=== PATIENT | female | born 1995 | race Two or more races ===

== ENCOUNTER 2024-01-19 10:18 | Outpatient (CLI) | payer OTHER | END 2024-01-19 10:20 | disposition home or self-care (01) | LOC: PRENATAL 10:18 | PROVIDERS: ATTEND Obstetrics & Gynecology Maternal & Fetal Medicine | DX: O36.80X0 Pregnancy with inconclusive fetal viability, not applicable or unspecified (principal); Z36.82 Encounter for antenatal screening for nuchal translucency; Z14.8 Genetic carrier of other disease; Z3A.12 12 weeks gestation of pregnancy ==

== ENCOUNTER 2024-03-08 08:09 | Outpatient (CLI) | payer OTHER | END 2024-03-08 08:12 | disposition home or self-care (01) | LOC: PRENATAL 08:09 | PROVIDERS: ATTEND Obstetrics & Gynecology Maternal & Fetal Medicine | DX: O44.00 Complete placenta previa NOS or without hemorrhage, unspecified trimester (principal); O34.10 Maternal care for benign tumor of corpus uteri, unspecified trimester; Z3A.20 20 weeks gestation of pregnancy ==

== ENCOUNTER → 2024-04-16 08:36 | Outpatient (CLI) | payer OTHER | END | disposition home or self-care (01) | LOC: PRENATAL 08:36 | PROVIDERS: ATTEND Obstetrics & Gynecology Maternal & Fetal Medicine | DX: O26.849 Uterine size-date discrepancy, unspecified trimester (principal); O34.10 Maternal care for benign tumor of corpus uteri, unspecified trimester; Z3A.25 25 weeks gestation of pregnancy ==

== ENCOUNTER 2024-06-11 09:20 | Outpatient (CLI) | payer OTHER | END 2024-06-11 09:23 | disposition home or self-care (01) | LOC: PRENATAL 09:20 | PROVIDERS: ATTEND Obstetrics & Gynecology Maternal & Fetal Medicine | DX: O26.849 Uterine size-date discrepancy, unspecified trimester (principal); O36.8199 Decreased fetal movements, unspecified trimester, other fetus; O34.10 Maternal care for benign tumor of corpus uteri, unspecified trimester; O28.3 Abnormal ultrasonic finding on antenatal screening of mother; Z3A.32 32 weeks gestation of pregnancy ==

== ENCOUNTER 2024-07-18 13:45 | Inpatient (IN) | payer OTHER ==
[~2024-07-18] VITALS: Ht 167.6 cm; Wt 90.7 kg
[2024-07-28] MEDS ORDERED: PRENATA CHEWAB1 EACH PO (18:52)
[2024-07-28 20:40] VITALS: BP 144/77
[2024-07-28] MEDS ORDERED: RINGERS SOLUTION,LACTATED 1,000 ML IV SCH (21:00)
[2024-07-28] MEDS ORDERED: AMPICILLIN SODIUM 2,000 MG VIAL IV ONE (21:00)
[2024-07-28] MEDS ORDERED: OXYTOCIN 20 UNITS/1000ML RL PIGGYBAG IV ONE (23:02)
[2024-07-28] MEDS ORDERED: ERYTHROMYCIN BASE OPHT 1GM EACH TUBE OP ONE (23:02)
[2024-07-28] MEDS ORDERED: LIDOCAINE HCL 1% 10ML VIAL ONE (23:02)
[2024-07-28] MEDS ORDERED: CHLORHEXIDINE GLUCONATE 120 ML BOTTLE TOP ONE (23:02)
[2024-07-28 23:09] VITALS: BP 134/77; O2SAT 100
[2024-07-29] VITALS (7 sets, daily range): BP systolic 116–134; BP diastolic 64–79
[2024-07-29] MEDS ORDERED: OXYTOCIN 500 ML IV SCH (00:15)
[2024-07-29] MEDS ORDERED: AMPICILLIN SODIUM 1,000 MG VIAL IV SCH (01:00)
[2024-07-29] MEDS ORDERED: CHLORHEXIDINE GLUCONATE 120 ML BOTTLE TOP SCH (03:30)
[2024-07-29] MEDS ORDERED: OXYTOCIN 1,000 ML IV SCH (03:30)
[2024-07-29] MEDS ORDERED: IBUprofen 400 MG TABLET PO PRN (03:30)
[2024-07-29 08:56] LABS: BASO % 0.2 % (0.1-1.2); HEMATOCRIT 30.1 % (34.1-44.9); HEMOGLOBIN 9.9 g/dL (11.2-15.7); LYMPH # 1.82 (1.18-3.74); LYMPH % 9.9 % (19.3-53.1); MEAN CORPUSCULAR HEMOGLOBIN 26.2 pg (25.6-32.2); MONO # 0.84 (0.24-0.82); MONO % 4.6 % (4.7-12.5); NEUT # 15.54 (1.56-6.13); NEUT % 84.9 % (34.0-71.1); PLATELET COUNT 213 K/uL (163-369); RED BLOOD COUNT 3.78 M/uL (3.93-5.22); RED CELL DISTRIBUTION WIDTH 14.1 % (11.6-14.4)
[2024-07-29] MEDS ORDERED: PNV,CALCIUM 72/IRON/FOLIC ACID 1 TAB TABLET PO SCH (09:00)
[2024-07-29] MEDS ORDERED: IRON FUM,PS/FOLIC/BCOMP,C NO.9 1 CAP CAPSULE PO NR (12:45)
[2024-07-30 01:00] VITALS: BP 105/65
[2024-07-30 06:06] LABS: BASO % 0.3 % (0.1-1.2); EOS # 0.07 (0.04-0.54); EOS % 0.8 % (0.7-7.0); LYMPH # 2.62 (1.18-3.74); LYMPH % 28.3 % (19.3-53.1); MEAN CORPUSCULAR HEMOGLOBIN 26.5 pg (25.6-32.2); MONO # 0.49 (0.24-0.82); MONO % 5.3 % (4.7-12.5); NEUT % 64.9 % (34.0-71.1); PLATELET COUNT 158 K/uL (163-369); RED BLOOD COUNT 3.24 M/uL (3.93-5.22); RED CELL DISTRIBUTION WIDTH 14.4 % (11.6-14.4)
[2024-07-30 07:20] LABS: HEMATOCRIT 26.3 % (34.1-44.9); HEMOGLOBIN 8.6 g/dL (11.2-15.7)
[2024-07-30 08:00] VITALS: BP 127/66
[2024-07-30] MEDS ORDERED: IRON FUM,PS/FOLIC/BCOMP,C NO.9 1 CAP CAPSULE PO SCH (09:00)
[2024-07-30 15:50] VITALS: BP 116/74
[2024-07-30 23:51] VITALS: BP 123/79
[2024-07-31 08:53] VITALS: BP 129/84
== END 2024-07-31 12:35 | disposition home or self-care (01) | DRG 807 ==
LOC: OB/GYN 07-26 13:45 → LDR 07-28 20:44 → OB/GYN 07-28 20:44
PROVIDERS: Obstetrics & Gynecology; ADMIT Student in an Organized Health Care Education/Training Program; ATTEND Student in an Organized Health Care Education/Training Program
PROC: 4A1HXCZ Monitoring of Products of Conception, Cardiac Rate, External Approach (ICD-10-PCS; 2024-07-28)
PROC: 10E0XZZ Delivery of Products of Conception, External Approach (ICD-10-PCS; principal; 2024-07-29)
PROC: 0KQM0ZZ Repair Perineum Muscle, Open Approach (ICD-10-PCS; 2024-07-29)
PROC: 0W8NXZZ Division of Female Perineum, External Approach (ICD-10-PCS; 2024-07-29)
DX: O70.1 Second degree perineal laceration during delivery (principal); O99.824 Streptococcus B carrier state complicating childbirth; O48.0 Post-term pregnancy; Z37.0 Single live birth; Z3A.40 40 weeks gestation of pregnancy

== ENCOUNTER → 2024-07-28 | Outpatient (CLI) | payer OTHER ==
[~2024-07-28] VITALS: Ht 167.6 cm; Wt 90.7 kg
[~2024-07-28] MED LIST: MORPHINE SULFATE 4 MG/ML VIAL IV ONE; OXYTOCIN 20 UNITS/1000ML RL PIGGYBAG IV ONE; PRENATA CHEWAB1 EACH PO; RINGERS SOLUTION,LACTATED 1,000 ML IV SCH
[2024-07-28 17:15] VITALS: BP 126/88
== END | disposition still patient (30) ==
LOC: OBS/DEL 18:39
PROVIDERS: ATTEND Obstetrics & Gynecology
DX: O26.893 Other specified pregnancy related conditions, third trimester (principal)